=== PATIENT | male | born 1975 | race Caucasian/White ===

== ENCOUNTER 2022-04-05 09:28 | Emergency (ER) | payer OTHER, SELFPAY ==
[2022-04-05 09:47] VITALS: BP 137/72; PULSE 64; RESP 17; TEMP 36.9; O2SAT 100; BMI 25.7
--- NOTE | 2022-04-05 09:50 | EXP.UTC ---
Discharge Plan Disposition Patient Disposition: Home, Self-Care Condition: Good Activity Restrictions/Add. Instructions Additional Instructions/Restrictions: Take tylenol for pain. Follow up with your regular doctor. GO TO THE ER FOR ANY WORSENING SYMPTOMS Clinical Impressions Clinical Impression: Cerumen impaction Qualifiers: Laterality: right Qualified Code(s): H61.21 - Impacted cerumen, right ear Instructions Patient Instructions: DI for Cerumen Impaction, Cerumen Impaction Discharge ED Provider: Chris Villanueva [facility] General Stated complaint: feels like wax is blocking hearing Mode of Arrival: Ambulatory Source of Information: Patient Limitations: No Limitations Time Seen by Provider: 04/05/22 09:50 Description of Symptoms (Recalled from Triage Doc. by RN): pt here with c/o hearing loss in right ear for two days. pt thinks it may be wax buildup. HEENT Symptoms (Recalled from RN notes): Yes Resp Symptoms (Recalled from RN notes): No Skin Symptoms (Recalled from RN notes): No MS Symptoms (Recalled from RN notes): No Functional Status (Recalled from RN notes): n/a History of Present Illness Provider Complaint: He states that for the past 2 days he has had decreased hearing in his right ear. It has also popped and felt funny at times. He denies any congestion or feeling bad. He has had ear wax impactions that felt like this in the past. Related Data Allergies Allergy/AdvReac Type Severity Reaction Status Date / Time Penicillins Allergy Verified 04/05/22 09:50 Worker's Comp Is this a Worker's Comp case?: No [facility] Social History Smoking Status: Current every day smoker alcohol intake: never current occupational status: other Travel in the last 8 weeks: None ROS Obtained: Yes All systems reviewed & no additional complaints except as documented Constitutional Constitutional: Denies chills, Reports fever(s) and Reports poor appetite Eyes Eyes: Denies eye discharge ENT Ears, Nose, Mouth, and Throat: Denies ear discharge, Reports otalgia, Denies hearing loss, Denies sinus pain and Reports sore throat Cardiovascular Cardiovascular: Denies chest pain and Denies dyspnea Respiratory Respiratory: Denies chest congestion, Reports cough and Denies dyspnea Gastrointestinal Gastrointestingal: Denies abdominal pain, diarrhea, nausea or vomiting Musculoskeletal Musculoskeletal: Denies arthralgias Integumentary/Breasts Skin/Breast: Denies rash Physical Exam General General appearance: alert and in no apparent distress Head Head exam: atraumatic, normocephalic and normal inspection Eye Eye exam: Present normal appearance, PERRL and EOMI ENT ENT exam: Present mucous membranes moist and normal external ear exam Expanded ENT Exam TM/Canal exam: Bilateral TM: cerumen impaction Nose exam: Absent sinus tenderness Mouth exam: Present normal external inspection; Absent drooling Teeth exam: Present normal inspection Throat exam: Present normal inspection Neck Neck exam: Present normal inspection, full ROM and trachea midline; Absent meningismus or lymphadenopathy Chest Chest inspection: Present normal inspection and symmetric chest wall rise; Absent tenderness Respiratory Respiratory exam: Present normal lung sounds bilaterally; Absent respiratory distress Cardiovascular Cardiovascular exam: Present regular rate and normal rhythm; Absent JVD Abdominal Exam Abdominal exam: Present soft and normal bowel sounds; Absent distention, tenderness or guarding Extremities Exam Extremities exam: Present normal inspection, full ROM and normal capillary refill; Absent calf tenderness Back Exam Back exam: Present normal inspection; Absent tenderness Neurological Exam Neurological exam: Present alert and oriented X3 Psychiatric Psychiatric exam: Present normal affect and normal mood Skin Skin exam: Present warm, dry, intact and normal color Lymphatic Lymphati
[2022-04-05 10:41] VITALS: BP 137/72; PULSE 64; RESP 17; TEMP 36.9
== END 2022-04-05 10:42 | disposition home or self-care (01) ==
PROVIDERS: Emergency Provider Nurse Practitioner Family
DX: H61.21 Impacted cerumen, right ear (principal)
CPT/HCPCS: 99213; G0463

== ENCOUNTER 2022-08-11 04:41 | Emergency (ER) | payer BC, SELFPAY ==
[2022-08-11 04:42] VITALS: BP 147/94; PULSE 60; RESP 19; TEMP 36.4; O2SAT 99; BMI 26.4
[2022-08-11 05:00] VITALS: BP 147/94; PULSE 59; RESP 16; O2SAT 98
--- NOTE | 2022-08-11 05:06 | XR_ITS ---
PROCEDURE INFORMATION: Exam: XR Right Shoulder Exam date and time: 08/11/2022 5:00 AM Age: 47 years old Clinical indication: Pain; Shoulder; Right; Additional info: R shoulder pain, injury during wrestling TECHNIQUE: Imaging protocol: Radiologic exam of the Right shoulder. Views: 2 or more views. COMPARISON: No relevant prior studies available. FINDINGS: Bones/joints: No acute fracture. No dislocation. Soft tissues: Unremarkable. IMPRESSION: No fracture. If pain persists, consider nonemergent MRI for further evaluation.
--- NOTE | 2022-08-11 05:09 | PC.NURSE ---
Pt gone to RAD
--- NOTE | 2022-08-11 05:13 | PC.NURSE ---
Pt back from RAD
--- NOTE | 2022-08-11 05:13 | HMH.EDUPEXT ---
Discharge Plan Disposition Patient Disposition: Home, Self-Care Prescriptions Prescriptions: New prednisone [prednisone] 20 mg tablet 20 mg PO BID Qty: 10 0RF No Action clindamycin HCl 300 mg capsule 300 mg PO QID Referrals Follow up/Referrals: Provider,Referral, [Primary Care Provider] - See instructions Clinical Impressions Clinical Impression: Right shoulder pain Instructions Patient Instructions: DI for Shoulder Pain Discharge ED Provider: Ashok Vásquez Upper Extremity HPI General Chief Complaint: Extremity Injury, Upper Stated Complaint: right shoulder pain; AO 08/10/22 1730 Time Seen by Provider: 08/11/22 05:00 Mode of Arrival: Family Vehicle Source of Information: Patient and Medical Record Limitations: No Limitations Description of Symptoms (Recalled from ER Triage Doc. by RN): Pt c/o R shoulder pain after his shoulder hit the wrestling mat. 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 He took tylenol & taped up his shoulder. States after sleeping for a little while, he is not able to move the shoulder very much. 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 History of Present Illness HPI narrative: acute rt shoulder injury yesterday doing wrestling move now with dec rt shoulder mobility and inc pain lissette with mov complaint: injury to: right and shoulder Onset (ago): day(s) Other Extremity Injury: Right: shoulder Other injuries: none Handedness: right Place: other (sports ) Severity: moderate Exacerbating factors: movement of extremity Associated symptoms: denies other symptoms Related Data Home Medications Medication Instructions Recorded Confirmed clindamycin HCl 300 mg capsule 300 mg PO QID dental caries 08/11/22 08/11/22 Previous Rx's Medication Instructions Recorded prednisone 20 mg tablet 20 mg PO BID #10 tabs 08/11/22 Allergies Allergy/AdvReac Type Severity Reaction Status Date / Time Penicillins Allergy Verified 04/05/22 09:50 [facility] Disclaimer: The information contained in this section may have been updated after the patient was seen, as this information can be updated by other users. Social History (Updated 04/06/22 @ 13:24 by Chris Villanueva APRN) Smoking Status: Current every day smoker alcohol intake: never current occupational status: other Travel in the last 8 weeks: None ROS Obtained: Yes All systems reviewed & no additional complaints except as documented Physical Exam General General appearance: alert Head Head exam: normocephalic Eye Eye exam: Present PERRL and EOMI ENT ENT exam: Present mucous membranes moist Neck Neck exam: Present trachea midline Respiratory Respiratory exam: Absent respiratory distress Cardiovascular Cardiovascular exam: Present regular rate Expanded Upper Extremity Exam Right: Shoulder exam: Present tenderness; Absent full ROM, deformity or dislocation Neuromotor exam: Normal wrist extension Vascular exam: Normal radial pulse Neurological Exam Neurological exam: Present alert, oriented X3 and CN II-XII intact Psychiatric Psychiatric exam: Present normal affect Skin Skin exam: Absent rash Medical Decision Making Medical Records Medical records reviewed: Yes I reviewed the patient's medical records. [place] Inquiry Pt receiving controlled substance: No Vital Signs: 08/11/22 04:42 08/11/22 05:00 Temperature 97.6 F Temperature Source Oral Pulse Rate 59 L Pulse Rate [Right] 60 Respiratory Rate 19 16 Blood Pressure 147/94 H Blood Pressure [Left Arm] 147/94 H Blood Pressure Mean 111 Blood Pressure Mean [Left Arm] 111 Blood Pressure Source [Left Arm] Automatic Cuff 02 Sat by Pulse Oximetry 99 98 Oxygen Delivery Method Room Air Lab Data Lab results reviewed: Yes I reviewed the patient's lab results. Orders (Tests/Meds)
--- NOTE | 2022-08-11 06:34 | PC.NURSE ---
called xray to check on status of XR results.
[2022-08-11 07:14] VITALS: BP 130/85; PULSE 54; RESP 17; TEMP 36.7; O2SAT 98
== END 2022-08-11 07:15 | disposition home or self-care (01) ==
PROVIDERS: Emergency Provider Emergency Medicine
DX: M25.511 Pain in right shoulder (principal); F17.210 Nicotine dependence, cigarettes, uncomplicated; X50.0XXA Overexertion from strenuous movement or load, initial encounter; Y93.69 Activity, other involving other sports and athletics played as a team or group
CPT/HCPCS: 73030; 99283; 99284

== ENCOUNTER 2022-09-28 08:14 | Emergency (ER) | payer BC, SELFPAY ==
[2022-09-28 08:15] VITALS: BP 138/105; PULSE 75; RESP 18; TEMP 36.5; O2SAT 99; BMI 25.7
--- NOTE | 2022-09-28 08:23 | XR_ITS ---
FINAL REPORT CLINICAL HISTORY: pain, injury 1 month ago FINDINGS: AP, oblique, and lateral views of the right ankle were obtained. There is no prior exam for comparison. There is no fracture or dislocation. There is degenerative joint disease. The ankle mortise is intact. Soft tissues are normal. IMPRESSION: Degenerative joint disease. Reviewed, Interpreted and Dictated by Sanjana Fernandez MD Transcribed by Karon Nair Authenticated and [facility]
--- NOTE | 2022-09-28 08:25 | HMH.EDGENADL ---
Discharge Plan Disposition Patient Disposition: Home, Self-Care Condition: Good Prescriptions Prescriptions: No Action hydrocodone-acetaminophen 5-325 mg tablet 1 tab PO TID PRN (Reason: pain) Qty: 9 0RF clindamycin HCl 300 mg capsule 300 mg PO QID prednisone [prednisone] 20 mg tablet 20 mg PO BID Qty: 10 0RF Referrals Follow up/Referrals: Provider,Franny, [Primary Care Provider] - See instructions Chantal Villalba DPM [Staff Physician] - See instructions Activity Restrictions/Add. Instructions Additional Instructions/Restrictions: Ice and elevate the ankle as needed for discomfort. Tylenol or Motrin as needed for discomfort. Follow-up with a local college professor for consideration of cyst excision. Clinical Impressions Clinical Impression: Right ankle sprain Stand Alone Forms Stand Alone Forms: Work/School Release Discharge ED Provider: Darrius Yung General Adult HPI General Chief complaint: Extremity Problem,Nontraumatic Stated complaint: pain in Rt ankle, no accident Time Seen by Provider: 09/28/22 08:18 History of Present Illness HPI narrative: Patient presents with a 1 month history of right ankle pain and swelling. He states he injured it at that time and this is the first time he sought medical attention. He does note not to the lateral aspect of the ankle at the area of discomfort. He does note some intermittent mild pain radiating from the ankle up to the lower leg and knee. He states the pain is somewhat worse with walking. He describes the pain as moderate in severity. Related Data Home Medications Medication Instructions Recorded Confirmed clindamycin HCl 300 mg capsule 300 mg PO QID dental caries 08/11/22 08/11/22 Previous Rx's Medication Instructions Recorded hydrocodone 5 mg-acetaminophen 325 1 tab PO TID PRN pain #9 tabs 08/11/22 mg tablet prednisone 20 mg tablet 20 mg PO BID #10 tabs 08/11/22 Allergies Allergy/AdvReac Type Severity Reaction Status Date / Time Penicillins Allergy Verified 04/05/22 09:50 [facility] Disclaimer: The information contained in this section may have been updated after the patient was seen, as this information can be updated by other users. Social History Smoking Status: Current every day smoker alcohol intake: never current occupational status: other Travel in the last 8 weeks: None ROS Obtained: Yes All systems reviewed & no additional complaints except as documented Physical Exam General General appearance: alert and in no apparent distress Head Head exam: atraumatic, normocephalic and normal inspection Eye Eye exam: Present normal appearance, PERRL and EOMI ENT ENT exam: Present normal exam, normal oropharynx, mucous membranes moist, TM's normal bilaterally and normal external ear exam Neck Neck exam: Present normal inspection, full ROM and trachea midline; Absent meningismus or lymphadenopathy Chest Chest inspection: Present normal inspection and symmetric chest wall rise; Absent tenderness Respiratory Respiratory exam: Present normal lung sounds bilaterally; Absent respiratory distress Cardiovascular Cardiovascular exam: Present regular rate and normal rhythm; Absent JVD Abdominal Exam Abdominal exam: Present soft and normal bowel sounds; Absent distention, tenderness or guarding Expanded Lower Extremity Exam Right: Ankle exam: Present other (To the lateral aspect of the right ankle there is a 1.5 cm diameter round compressible lesion just distal to the lateral malleolus. There is no tenderness or erythema in this area. There is minimal if any tenderness to the lateral malleolus itself. ) Back Exam Back exam: Present normal inspection; Absent tenderness Neurological Exam Neurological exam: Present alert and oriented X3 Psychiatric Psychiatric exam: Present normal affect and normal mood Skin Skin exam: Present warm, dry, intact and normal color
[2022-09-28 08:26] VITALS: BP 118/84
[2022-09-28 08:30] VITALS: BP 132/77; PULSE 60; RESP 18; O2SAT 99
[2022-09-28 09:50] VITALS: BP 136/79; PULSE 65; RESP 14; TEMP 36.4
== END 2022-09-28 09:54 | disposition home or self-care (01) ==
PROVIDERS: Emergency Provider Emergency Medicine
DX: S93.401A Sprain of unspecified ligament of right ankle, initial encounter (principal); F17.210 Nicotine dependence, cigarettes, uncomplicated; X58.XXXA Exposure to other specified factors, initial encounter
CPT/HCPCS: 73610; 99283; 99284

== ENCOUNTER → 2022-12-22 23:09 | Outpatient (CLI) | payer BC, SELFPAY ==
[2022-12-22 17:48] LABS: Basophils % 0.3 % (0.1-2.0); Eosinophils # 0.4 K/mm3 (0.0-0.4); Hematocrit 49.2 % (42.0-52.0); Hemoglobin 15.8 g/dL (14.1-18.0); Lymphocytes # 2.1 K/mm3 (0.7-4.5); Lymphocytes % 19.3 % (10-50); Mean Corpuscular HGB Conc 32.2 g/dL (31.8-35.4); Mean Corpuscular Hemoglobin 30.3 pg (27.0-31.2); Mean Platelet Volume 7.8 fl (7.4-10.4); Monocytes # 0.8 K/mm3 (0.1-1.0); Monocytes % 7.6 % (1.7-9.3); Neutrophils # 7.5 K/mm3 (1.8-7.8); Neutrophils % 68.7 % (37.0-80.0); Platelet Count 368 K/mm3 (142-424); Red Blood Count 5.23 M/mm3 (4.60-6.20); Red Cell Distribution Width 12.8 % (11.5-17.5)
[2022-12-22 18:38] LABS: Alanine Aminotransferase 40 U/L (12-78); Albumin Level 4.6 g/dl (3.5-5.0); Albumin/Globulin Ratio 2.2 (1.1-1.8); Alkaline Phosphatase 86 U/L (38-126); Anion Gap 17.3 mEq/L (5-15); Aspartate Amino Transferase 53 U/L (17-59); Bilirubin,Total 0.3 mg/dl (0.2-1.3); Blood Urea Nitrogen 17 mg/dl (9-20); Calcium 9.7 mg/dl (8.4-10.2); Carbon Dioxide 30 mmol/L (22.0-30.0); Chloride 91 mmol/L (98-107); Chol/HDL Ratio 2.6 (1-3.5); Cholesterol 176 mg/dl (140-200); Estimated Glomerular Filt Rate 71 ml/min (>60); GFR (African American) 86 ML/MIN (>60); Globulin 2.1 g/dL (1.3-3.2); Glucose 76 mg/dl (74-100); HDL Cholesterol 69 mg/dl (40-60); Potassium 5.3 mmoL/L (3.5-5.1); Sodium 133 mmol/L (136-145); Total Protein,Serum 6.7 g/dl (6.3-8.2); Triglycerides 175 mg/dl (30-150); VLDL Cholesterol 35 mg/dL (0-40)
[2022-12-22 18:50] LABS: Direct LDL Cholesterol 85.48 mg/dL (100-129)
[2022-12-22 19:09] LABS: Prostate Specific Ag Screen 0.6 ng/ml (0.0-4.0); Thyroid Stimulating Hormone 3.36 uIU/mL (0.465-4.68)
== END ==
PROVIDERS: PCP Emergency Medicine; Visit Provider Emergency Medicine
DX: Z00.00 Encounter for general adult medical examination without abnormal findings (principal); M79.2 Neuralgia and neuritis, unspecified; M25.50 Pain in unspecified joint; F41.9 Anxiety disorder, unspecified; Z12.5 Encounter for screening for malignant neoplasm of prostate
CPT/HCPCS: 80053; 80061; 82306; 84443; 85025; G0103

== ENCOUNTER → 2023-02-07 23:32 | Outpatient (CLI) | payer BC, SELFPAY ==
[2023-02-08 01:59] LABS: Amphetamine/Metha Screen,Urine Negative ng/ml (<1000)
[2023-02-08 02:00] LABS: Barbiturates Screen,Urine Negative ng/ml (<200); Benzodiazepines Screen,Urine Positive ng/ml (<200)
[2023-02-08 02:01] LABS: Cocaine Screen,Urine Negative ng/ml (<300)
[2023-02-08 02:53] LABS: Methadone Screen,Urine Negative ng/ml (<300)
[2023-02-08 02:54] LABS: Cannabinoid Screen,Urine Negative ng/ml (<50); Opiate Screen,Urine Positive ng/ml (<300)
[2023-02-08 02:58] LABS: Phencyclidine Screen,Urine Negative ng/ml (<25)
== END ==
PROVIDERS: PCP Emergency Medicine; Visit Provider Emergency Medicine
DX: Z79.899 Other long term (current) drug therapy (principal)
CPT/HCPCS: 80305

== ENCOUNTER 2023-04-12 12:47 | Emergency (ER) | payer BC, SELFPAY ==
[2023-04-12 12:49] VITALS: BP 137/83; PULSE 75; RESP 18; TEMP 36.7; O2SAT 100; BMI 25.1
[2023-04-12 12:53] VITALS: BP 137/83; PULSE 66; O2SAT 98
[2023-04-12 12:55] VITALS: BMI 25.1
--- NOTE | 2023-04-12 12:55 | XR_ITS ---
FINAL REPORT CLINICAL HISTORY: ANKLE/FOOT PAIN. lateral sided foot and ankle pain COMPARISON: 09/28/2022 FINDINGS: RIGHT FOOT Three views were obtained. There is no fracture or dislocation. There are mild degenerative changes. No soft tissue abnormality is identified. IMPRESSION: No acute process. Reviewed, Interpreted and Dictated by Jasvir Parson III, MD Transcribed by Karon Nair Authenticated and [facility]
--- NOTE | 2023-04-12 12:56 | XR_ITS ---
FINAL REPORT CLINICAL HISTORY: FOOT/ANKLE PAIN lateral sided pain and swelling FINDINGS: RIGHT FOOT Three views were obtained. There is no fracture or dislocation. The joint spaces appear normal. No soft tissue abnormality is identified. IMPRESSION: No acute process. Reviewed, Interpreted and Dictated by Jasvir Parson III, MD Transcribed by Karon Nair Authenticated and [facility]
--- NOTE | 2023-04-12 13:01 | PC.NURSE ---
DR NUGENT AT BEDSIDE FOR EVALUATION
--- NOTE | 2023-04-12 13:01 | HMH.EDGENADL ---
Discharge Plan Disposition Patient Disposition: Home, Self-Care Prescriptions Prescriptions: No Action clonazepam [Klonopin] 0.5 mg tablet 0.5 mg PO TID Qty: 90 1RF oxycodone 10 mg tablet 10 mg PO QID Qty: 120 0RF Referrals Follow up/Referrals: Siddhartha Gutiérrez DO [Staff Physician] - See instructions Ashok Vásquez MD [Primary Care Provider] - See instructions Activity Restrictions/Add. Instructions Additional Instructions/Restrictions: At this time it is felt you are safe to be discharged home. If new or worsening symptoms please do not hesitate to return the emergency department. Please call and schedule appointment with Dr. Gutiérrez as soon as you are able. Clinical Impressions Clinical Impression: Acute pain of right foot Discharge ED Provider: Cuate Reddy General Adult HPI General Chief complaint: PAIN Stated complaint: pain in Rt ankle/foot, no accident Time Seen by Provider: 04/12/23 13:01 Mode of Arrival: Ambulatory Limitations: No Limitations Description of Symptoms (Recalled from ER Triage Doc. by RN): PT WITH C/O RIGHT FOOT/ANKLE PAIN. PREVIOUS INJURY ABOUT 1 YEAR AGO. REPORTS STEPPING WRONG AT WORK CAUSING PAIN History of Present Illness HPI narrative: Patient is a 48-year-old male with no pertinent past medical history presents emergency department for evaluation of ankle and foot pain. Patient states that over a year ago he had a previous injury resulting in discoloration to his lateral foot which ultimately resolved. 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 He was at work when he misstepped resulting in some bruising over his lateral foot again and he presents here for continued evaluation. No other acute complaints at this time. Related Data Previous Rx's Medication Instructions Recorded clonazepam 0.5 mg tablet (Klonopin) 0.5 mg PO TID #90 tabs 04/08/23 oxycodone 10 mg tablet 10 mg PO QID #120 tabs 04/08/23 Allergies Allergy/AdvReac Type Severity Reaction Status Date / Time Penicillins Allergy Verified 04/08/23 11:17 [facility] Disclaimer: The information contained in this section may have been updated after the patient was seen, as this information can be updated by other users. Social History Smoking Status: Current every day smoker alcohol intake: never current occupational status: other Travel in the last 8 weeks: None ROS Obtained: Yes Systems reviewed as appropriate & no additional complaints except as documented Physical Exam General General appearance: alert and in no apparent distress Head Head exam: atraumatic and normocephalic Eye Eye exam: Present PERRL and EOMI ENT ENT exam: Present mucous membranes moist Neck Neck exam: Present normal inspection Chest Chest inspection: Present normal inspection and symmetric chest wall rise Respiratory Respiratory exam: Absent respiratory distress Cardiovascular Cardiovascular exam: Present regular rate and normal rhythm Abdominal Exam Abdominal exam: Present soft Extremities Exam Extremities exam: Present other (Mild bruising over the lateral aspect of the right foot over the tarsal bones and lateral malleolus. Tenderness over the lateral tarsal bones of the right lower extremity. Palpable dorsal pedal pulse, distally neurovascularly intact.) Neurological Exam Neurological exam: Present alert Psychiatric Psychiatric exam: Present normal affect Skin Skin exam: Present warm and dry Medical Decision Making [place] Inquiry Pt receiving controlled substance: No Vital Signs: 04/12/23 12:49 04/12/23 12:53 Temperature 98.1 F Temperature Source Oral Pulse Rate 66 Pulse Rate [Radial] 75 Respiratory Rate 18 Blood Pressure 137/83 Blood Pressure [Right Arm] 137/83 Blood Pressure Mean 95 Blood Pressure Mean [Right Arm] 101 Blood Pressure Source [Right Arm] Automatic Cuff Blood Pressure Position [Right Arm] Sitting
--- NOTE | 2023-04-12 13:12 | PC.NURSE ---
PT RETURNED FROM XR
[2023-04-12 14:23] VITALS: BP 116/78; PULSE 75; RESP 18; TEMP 36.6; O2SAT 98
== END 2023-04-12 14:23 | disposition home or self-care (01) ==
PROVIDERS: Emergency Provider Emergency Medicine; PCP Emergency Medicine
DX: M25.571 Pain in right ankle and joints of right foot (principal); F17.200 Nicotine dependence, unspecified, uncomplicated
CPT/HCPCS: 73610; 73630; 99284

== ENCOUNTER → 2023-06-03 15:55 | Outpatient (CLI) | payer BC, SELFPAY ==
[2023-06-03 15:18] LABS: Amphetamine/Metha Screen,Urine Negative ng/ml (<1000); Barbiturates Screen,Urine Negative ng/ml (<200)
[2023-06-03 15:20] LABS: Benzodiazepines Screen,Urine Positive ng/ml (<200)
[2023-06-03 15:21] LABS: Cannabinoid Screen,Urine Negative ng/ml (<50)
[2023-06-03 15:22] LABS: Cocaine Screen,Urine Negative ng/ml (<300); Methadone Screen,Urine Negative ng/ml (<300)
[2023-06-03 15:23] LABS: Opiate Screen,Urine Positive ng/ml (<300)
[2023-06-03 15:24] LABS: Phencyclidine Screen,Urine Negative ng/ml (<25)
== END ==
PROVIDERS: PCP Emergency Medicine; Visit Provider Emergency Medicine
DX: M79.2 Neuralgia and neuritis, unspecified (principal); Z79.899 Other long term (current) drug therapy
CPT/HCPCS: 80305

== ENCOUNTER 2023-08-11 19:18 | Outpatient (CLI) | payer BC, SELFPAY ==
[2023-08-11 21:27] LABS: Amphetamine/Metha Screen,Urine Negative ng/ml (<1000); Barbiturates Screen,Urine Negative ng/ml (<200); Benzodiazepines Screen,Urine Positive ng/ml (<200); Cannabinoid Screen,Urine Negative ng/ml (<50); Cocaine Screen,Urine Negative ng/ml (<300); Methadone Screen,Urine Negative ng/ml (<300); Opiate Screen,Urine Positive ng/ml (<300); Phencyclidine Screen,Urine Negative ng/ml (<25)
== END 2023-08-11 23:59 ==
LOC: LAB.DROPOF 19:18
PROVIDERS: PCP Internal Medicine; Visit Provider Internal Medicine
DX: Z79.899 Other long term (current) drug therapy (principal)
CPT/HCPCS: 80307

== ENCOUNTER → 2023-08-24 13:15 | Outpatient (POV) | payer BC, SELFPAY ==
--- NOTE | 2023-08-24 13:28 | A.OFFVIS_ITS ---
HPI Data of Consult Patient: new to practice Consult date: 08/24/23 Requesting Physician: Ruby Gutiérrez APRN Primary Care Provider: Deyvi Mendez DO Consult Narrative History of present illness: Mr. Ramírez is a 48 year old male who presents today as a new patient. He is a referral from Dr. Celestin's office. Today he rates his pain a 6 out of 10. Patient states his pain is only in his bilateral knees. He states this has been going on for at least 20+ years and progressively worsened over time. 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 Patient also states that he was in the [employer] and is still very active and does believe all of this is played a role in his knee pain. He does describe it as an aching, throbbing, sharp sensation that is worse with increased activity or ambulation. Patient does state he has very limited range of motion and that he does have popping with his right knee and that it will frequently move out of place. He does state that the left knee has a significant knot on the inner aspect and that it does cause worsening pain. Patient states he did go to the [facility] years ago and he thought that they were going to do additional imaging however they were going to do intra-articular injections so he did not proceed forward. Patient does state the pain interferes with his ability perform activities of daily living such as cooking or cleaning. He states that frequently he has to use pillows to position between his legs at night to get any sleep. Patient denies any recent imaging. Patient has tried [id number] Tylenol and ibuprofen along with heat and ice and topicals with minimal relief. Patient states that he has not done physical therapy for his knees however due to his job he is very active and does do exercise and stretching on a regular basis for longer than 12 weeks. Patient is currently managed with oxycodone 10 mg 4 times a day and clonazepam 0.5 mg twice a day from his PCP. Patient does also state he does still have some occasional right ankle pain however this is much better than what it was previously last y ear. His [place] has been reviewed and is appropriate. CC: Ruby Gutiérrez APRN [facility] Disclaimer: The information contained in this section may have been updated after the patient was seen, as this information can be updated by other users. Social History Smoking Status: Current every day smoker alcohol intake: never current occupational status: other Travel in the last 8 weeks: None Review of Systems Review of Systems Review of systems:: pertinent systems reviewed and negative unless documented below Review of systems (narrative): Review of Systems: General: No recent weight changes, no fever, no sleep disturbances Respiratory: No cough, no shortness of air, no recurring pulmonary infections Cardiovascular/peripheral vascular: No chest pain, no palpitations, no edema, no shortness of breath Gastrointestinal: No new onset incontinence, normal bowel movements reported Genitourinary: No new onset incontinence Musculoskeletal: Bilateral knee pain Psychiatric: [Normal mood/affect] Neurological: [Denies weakness in extremities], [denies balance issues] Meds Home Medications and Allergies Home Medications Medication Instructions Recorded Confirmed Type clonazepam 0.5 mg tablet (Klonopin) 0.25 mg PO QID 30 days #60 tabs 08/11/23 08/11/23 Rx oxycodone 10 mg tablet 10 mg PO QID #120 tabs 08/11/23 08/11/23 Rx prazosin 5 mg capsule 5 mg PO HS 30 days #30 caps 08/11/23 08/11/23 Rx New Prescriptions to Start Prescriptions: Allergies Allergy/AdvReac Type Severity Reaction Status Date / Time Penicillins Allergy Verified 08/11/23 13:22 Objective Narrative: Physical Exam: General: Alert and oriented x3, no acute distress, pleasant and cooperative Lungs: Respirations even and unlabored, symmetrical chest expansion Eyes: PERRL Musculoskeletal: Flexion and extension of bilateral knees somewhat guarded secondary to pain, [antalgic gait noted] Neurological: Speech clear, no gross sensory deficit Additional findings Additional findings: FINAL REPORT CLINICAL HISTORY: FOOT/ANKLE PAIN lateral sided pain and swelling FINDINGS: RIGHT FOOT Three views were obtained. There is no fracture or dislocation. The joint spaces appear normal. No soft tissue abnormality is identified. IMPRESSION: No acute process. Reviewed, Interpreted and Dictated by Jasvir Parson III, MD Transcribed by Karon Nair Authenticated and [facility] FINAL REPORT CLINICAL HISTORY: ANKLE/FOOT PAIN. lateral sided foot and ankle pain COMPARISON: 09/28/2022 FINDINGS: RIGHT FOOT Three views were obtained. There is no fracture or dislocation. There are mild degenerative changes. No soft tissue abnormality is identified. IMPRESSION: No acute process. Reviewed, Interpreted and Dictated by Jasvir Parson III, MD Transcribed by Karon Nair Authenticated and [facility] Assessment and Plan *Assessment and plan (1) Bilateral knee pain: Status: Acute Qualifiers: Chronicity: chronic Qualified Code(s): M25.561 - Pain in right knee; M25.562 - Pain in left knee; G89.29 - Other chronic pain Category: Medical Code(s): M25.561 - Pain in right knee; M25.562 - Pain in left knee Plan Patient is experiencing significant pain in his bilateral knees with limited range of motion. Patient does have a large golf ball size mass along his left medial aspect of his knee. I have discussed with the patient that I will order x-ray imaging as well as MRI without contrast of his bilateral knees. I have discussed with the patient in future he may benefit from injection therapy however we will follow-up with this after imaging. I will order the patient a compounded cream. Patient will return to clinic in 1 month for reevaluation of symptoms and plan of care. Patient has been instructed to contact the clinic with any concerns before the next appointment. Dr. Hi has reviewed this note and agrees with this plan of care. This note was dictated using voice recognition software and make contain errors or omissions.
[2023-08-24 14:54] VITALS: BP 139/101; PULSE 96; RESP 18; O2SAT 95; BMI 26.4
== END ==
LOC: SC.PAIN 13:15
PROVIDERS: PCP Internal Medicine; Visit Provider Nurse Practitioner Family
DX: M25.561 Pain in right knee (principal); M25.562 Pain in left knee; G89.29 Other chronic pain
CPT/HCPCS: 99202; G0463

== ENCOUNTER 2023-09-08 19:20 | Outpatient (CLI) | payer BC, SELFPAY ==
[2023-09-08 19:08] LABS: Alanine Aminotransferase 27 U/L (12-78); Albumin Level 4.1 g/dl (3.5-5.0); Albumin/Globulin Ratio 1.9 (1.1-1.8); Alkaline Phosphatase 81 U/L (38-126); Anion Gap 9.4 mEq/L (5-15); Aspartate Amino Transferase 39 U/L (17-59); Bilirubin,Total 0.2 mg/dl (0.2-1.3); Blood Urea Nitrogen 6 mg/dl (9-20); Calcium 9.5 mg/dl (8.4-10.2); Carbon Dioxide 30 mmol/L (22.0-30.0); Chloride 101 mmol/L (98-107); Estimated Glomerular Filt Rate 89 ml/min (>60); GFR (African American) 108 ML/MIN (>60); Globulin 2.2 g/dL (1.3-3.2); Glucose 99 mg/dl (74-100); Potassium 4.4 mmoL/L (3.5-5.1); Sodium 136 mmol/L (136-145); Total Protein,Serum 6.3 g/dl (6.3-8.2)
== END 2023-09-08 23:59 ==
LOC: LAB.DROPOF 19:20
PROVIDERS: PCP Internal Medicine; Visit Provider Internal Medicine
DX: R53.83 Other fatigue (principal)
CPT/HCPCS: 80053

== ENCOUNTER 2024-01-31 22:21 | Emergency (ER) | payer BC, SELFPAY ==
[2024-01-31 22:29] VITALS: BP 141/86; PULSE 99; RESP 16; TEMP 37.1; O2SAT 96; BMI 27.1
[2024-01-31 22:46] VITALS: BP 141/86; PULSE 99; RESP 16; TEMP 37.1; O2SAT 96
--- NOTE | 2024-01-31 22:46 | [facility].EDGENADL ---
Discharge Plan Disposition Patient Disposition: Home, Self-Care Prescriptions Prescriptions: No Action prazosin 5 mg capsule 5 mg PO HS 30 Days Qty: 30 2RF clonazepam [Klonopin] 0.5 mg tablet 0.25 mg PO TID 30 Days Qty: 45 0RF oxycodone 10 mg tablet 10 mg PO QID Qty: 120 0RF Referrals Follow up/Referrals: Deyvi Mendez DO [Primary Care Provider] - See instructions Activity Restrictions/Add. Instructions Additional Instructions/Restrictions: No emergent medical condition identified patient is cleared medically for incarceration. Clinical Impressions Clinical Impression: Medical clearance for incarceration Discharge ED Provider: Giancarlo Jacques General Adult HPI General Chief complaint: Medical Clearance Stated complaint: Medical Celarance,blood draw Time Seen by Provider: 01/31/24 22:42 Mode of Arrival: Ambulatory Source of Information: Patient and Law Enforcement Limitations: No Limitations Description of Symptoms (Recalled from ER Triage Doc. by RN): Pt reported to ED escorted by PD for medical clearance. Pt has no complaints at this time. Pt states having chronic pain. PD states pt possibly abused fentanyl approx 5 hours ago. History of Present Illness HPI narrative: Patient is a 49-year-old male brought in today by police for medical clearance prior to incarceration. He has no complaints he was not on his way to the emergency department he was pulled over and given a DUI allegedly. He denies any drug or alcohol use currently. He denies any somatic complaints. Related Data Previous Rx's Medication Instructions Recorded prazosin 5 mg capsule 5 mg PO HS 30 days #30 caps 08/11/23 clonazepam 0.5 mg tablet (Klonopin) 0.25 mg (1/2 x 0.5 mg) PO TID 30 09/08/23 days #45 tabs oxycodone 10 mg tablet 10 mg PO QID #120 tabs 09/08/23 Allergies Allergy/AdvReac Type Severity Reaction Status Date / Time Penicillins Allergy Verified 09/08/23 11:28 [facility] Disclaimer: The information contained in this section may have been updated after the patient was seen, as this information can be updated by other users. Medical History Chronic knee pain Family History Other Unknown family medical history Social History Smoking Status: Current every day smoker alcohol intake: never current occupational status: employed Travel in the last 8 weeks: None ROS Obtained: Yes All systems reviewed & no additional complaints except as documented Physical Exam General General appearance: alert and in no apparent distress Respiratory Respiratory exam: Present normal lung sounds bilaterally; Absent respiratory distress Cardiovascular Cardiovascular exam: Present regular rate and normal rhythm Neurological Exam Neurological exam: Present alert and oriented X3; Absent motor sensory deficit Medical Decision Making [place] Inquiry Pt receiving controlled substance: No Vital Signs: 01/31/24 22:29 Temperature 98.8 F Temperature Source Oral Pulse Rate [Left Radial] 99 H Respiratory Rate 16 Blood Pressure [Right Arm] 141/86 H Blood Pressure Mean [Right Arm] 104 02 Sat by Pulse Oximetry 96 Oxygen Delivery Method Room Air Medical Decision Narrative: 49-year-old male presenting today for medical clearance. He is awake alert oriented nonfocal neurologic exam has no somatic complaints no evidence of trauma. I have no indication for do any type of emergent medical evaluation or workup at this point. Everything else is forensic and legal and he is cleared from my standpoint medically. No indication from an emergency standpoint for any toxicologic workup as it would not change any of my management. No indication for prolonged observation in the ED and he was cleared to be in police custody. Critical Care Critical Care Time Critical Care Time: No
== END 2024-01-31 23:12 | disposition home or self-care (01) ==
PROVIDERS: Emergency Provider Student in an Organized Health Care Education/Training Program; PCP Internal Medicine
DX: Z00.8 Encounter for other general examination (principal)
CPT/HCPCS: 99281